=== PATIENT | male | born 1975 | race African-American/Black ===

== ENCOUNTER 2022-12-26 18:06 | Emergency (ER) | payer MEDICAID ==
[~2022-12-26] VITALS: Ht 177.8 cm; Wt 90.0 kg
[2022-12-26 18:41] VITALS: BP 132/84; PULSE 100; RESP 20; TEMP 98.5; O2SAT 100
[2022-12-26] MEDS ORDERED: KETOROLAC 30MG/ML VIAL IM ONE (19:30)
== END 2022-12-26 21:34 | disposition left against medical advice (07) ==
LOC: ER 18:06
DX: S01.511A Laceration without foreign body of lip, initial encounter (principal); M26.30 Unspecified anomaly of tooth position of fully erupted tooth or teeth; V89.2XXA Person injured in unspecified motor-vehicle accident, traffic, initial encounter; Y93.89 Activity, other specified; Y92.89 Other specified places as the place of occurrence of the external cause; Y99.8 Other external cause status
CPT/HCPCS: 99283